=== PATIENT | female | born 1995 ===

== ENCOUNTER → 2019-11-08 | Outpatient (CLI) | payer OTHER | LOC: LAB SHORT 18:00 → LAB 18:00 | DX: Z34.92 Encounter for supervision of normal pregnancy, unspecified, second trimester (principal) | CPT/HCPCS: 87086 ==

== ENCOUNTER 2020-03-04 20:01 | Inpatient (IN) | payer OTHER ==
[~2020-03-04] VITALS: Ht 162.6 cm; Wt 75.9 kg
[2020-03-04] MEDS ORDERED: PRENATE ENHANC1 EACH PO (20:44)
[2020-03-04 20:52] LABS: BASOPHILS ABSOLUTE AUTO 0.03 K/mm3 (0.00-0.23); BASOPHILS PERCENT AUTO 0 % (0-2); EOSINOPHILS ABSOLUTE AUTO 0.03 K/mm3 (0.00-0.68); EOSINOPHILS PERCENT AUTO 0 % (0-6); Hematocrit 34.4 % (33.0-51.0); Hemoglobin 11.2 g/dL (11.5-16.0); IMMATURE GRAN ABSOLUTE AUTO 0.03 K/mm3 (0.00-0.10); IMMATURE GRAN PERCENT AUTO 0 % (0-1); LYMPHOCYTES ABSOLUTE AUTO 1.77 K/mm3 (0.84-5.20); LYMPHOCYTES PERCENT AUTO 24 % (21-46); MONOCYTES ABSOLUTE AUTO 0.52 K/mm3 (0.16-1.47); MONOCYTES PERCENT AUTO 7 % (4-13); Mean Corpuscular HGB 28.4 pg (26.0-34.0); Mean Corpuscular HGB Conc 32.6 g/dL (31.5-36.5); Mean Corpuscular Volume 87 fL (80-100); Mean Platelet Volume 11.2 fL (9.1-12.4); NEUTROPHILS ABSOLUTE AUTO 5.08 K/mm3 (1.96-9.15); NEUTROPHILS PERCENT AUTO 68 % (41-73); Platelet Count 203 K/mm3 (150-400); RDW Coefficient Variation 13.3 % (11.7-14.2); RDW Standard Deviation 42.3 fL (35.1-46.3); Red Blood Cell Count 3.94 M/mm3 (3.80-5.20); White Blood Cell Count 7.46 K/mm3 (4.00-11.30)
--- NOTE | 2020-03-06 01:21 | NUR ---
[id number] FROM DAMION GARCIA RN. ASSUMED CARE OF PT FOR LABOR RECOVERY AT THIS TIME
[2020-03-06 06:21] LABS: Hematocrit 31.1 % (33.0-51.0); Hemoglobin 10.1 g/dL (11.5-16.0); Mean Corpuscular HGB 28.6 pg (26.0-34.0); Mean Corpuscular HGB Conc 32.5 g/dL (31.5-36.5); Mean Corpuscular Volume 88 fL (80-100); Mean Platelet Volume 11.7 fL (9.1-12.4); Platelet Count 161 K/mm3 (150-400); RDW Coefficient Variation 13.4 % (11.7-14.2); RDW Standard Deviation 42.5 fL (35.1-46.3); Red Blood Cell Count 3.53 M/mm3 (3.80-5.20); White Blood Cell Count 12.58 K/mm3 (4.00-11.30)
--- NOTE | 2020-03-06 10:07 | NUR ---
IV DCD AT PATIENT REQUEST. PATIENT UNDERSTANDS THAT IF SHE HAS A BLEEDING ISSUE WE WILL PLACE A NEW ONE. PATIENT PREFERS IBUPROFEN INSTEAD OF TORADOL AND PREFERED HER RHOGAM IM VS. IV BECAUSE SHE DOESN'T LIKE THE FEELING OF THINGS GOING THROUGH HER IV
--- NOTE | 2020-03-07 09:40 | NUR ---
dc teaching done, all questions answered, pt and so are ready to go home, obt matching bands then will walk out.
== END 2020-03-07 09:58 | disposition home or self-care (01) | DRG 807 ==
LOC: OBS 20:01 → BC 20:14
PROVIDERS: Advanced Practice Midwife; ADMIT Registered Nurse Community Health
PROC: 3E0P7VZ Introduction of Hormone into Female Reproductive, Via Natural or Artificial Opening (ICD-10-PCS; 2020-03-04)
PROC: 10E0XZZ Delivery of Products of Conception, External Approach (ICD-10-PCS; principal; 2020-03-05)
PROC: 0KQM0ZZ Repair Perineum Muscle, Open Approach (ICD-10-PCS; 2020-03-05)
PROC: 3E033VJ Introduction of Other Hormone into Peripheral Vein, Percutaneous Approach (ICD-10-PCS; 2020-03-05)
PROC: 10907ZC Drainage of Amniotic Fluid, Therapeutic from Products of Conception, Via Natural or Artificial Opening (ICD-10-PCS; 2020-03-05)
PROC: 00HU33Z Insertion of Infusion Device into Spinal Canal, Percutaneous Approach (ICD-10-PCS; 2020-03-05)
PROC: 3E0R3BZ Introduction of Anesthetic Agent into Spinal Canal, Percutaneous Approach (ICD-10-PCS; 2020-03-05)
DX: O48.0 Post-term pregnancy (principal); Z37.0 Single live birth; Z3A.40 40 weeks gestation of pregnancy; O70.0 First degree perineal laceration during delivery; O71.82 Other specified trauma to perineum and vulva
CPT/HCPCS: 36415; 51702; 85025; 85027; 85460; 86850; 86900; 86901; 96372; J1885; J2001; J2590; J2791; J3010; J7120

== ENCOUNTER → 2021-06-03 | Outpatient (CLI) | payer OTHER ==
[~2021-06-03] MED LIST: PRENATE ENHANC1 EACH PO
== END ==
LOC: LAB SHORT 18:32
PROVIDERS: Registered Nurse Community Health
DX: Z12.4 Encounter for screening for malignant neoplasm of cervix (principal)

== ENCOUNTER → 2021-08-07 | Outpatient (CLI) | payer OTHER ==
[2021-08-09 01:07] LABS: CHLAMYDIA TRACHOMATIS, NAA Negative (Negative)
== END ==
LOC: LAB 14:30 → LAB SHORT 14:30
PROVIDERS: Registered Nurse Community Health
DX: Z34.92 Encounter for supervision of normal pregnancy, unspecified, second trimester (principal)
CPT/HCPCS: 87491; 87591

== ENCOUNTER → 2021-10-10 | Outpatient (CLI) | payer OTHER ==
[2021-10-10 16:59] LABS: Hematocrit 34.7 % (33.0-51.0); Hemoglobin 11.3 g/dL (11.5-16.0)
== END ==
LOC: LAB SHORT 14:49
PROVIDERS: Registered Nurse Community Health
DX: Z34.92 Encounter for supervision of normal pregnancy, unspecified, second trimester (principal)
CPT/HCPCS: 36415; 82950; 85014; 85018

== ENCOUNTER → 2021-12-02 | Outpatient (CLI) | payer OTHER | LOC: LAB SHORT 13:57 | DX: Z34.93 Encounter for supervision of normal pregnancy, unspecified, third trimester (principal) | CPT/HCPCS: 87081; 87150 ==

== ENCOUNTER 2021-12-25 04:02 | Inpatient (IN) | payer OTHER ==
[~2021-12-25] VITALS: Ht 160 cm; Wt 89.1 kg
[2021-12-25 05:36] LABS: BASOPHILS ABSOLUTE AUTO 0.03 K/mm3 (0.00-0.23); BASOPHILS PERCENT AUTO 0 % (0-2); EOSINOPHILS ABSOLUTE AUTO 0.06 K/mm3 (0.00-0.68); EOSINOPHILS PERCENT AUTO 1 % (0-6); Hematocrit 29.8 % (33.0-51.0); Hemoglobin 9.5 g/dL (11.5-16.0); IMMATURE GRAN ABSOLUTE AUTO 0.05 K/mm3 (0.00-0.10); IMMATURE GRAN PERCENT AUTO 1 % (0-1); LYMPHOCYTES ABSOLUTE AUTO 2.17 K/mm3 (0.84-5.20); LYMPHOCYTES PERCENT AUTO 27 % (21-46); MONOCYTES ABSOLUTE AUTO 0.58 K/mm3 (0.16-1.47); MONOCYTES PERCENT AUTO 7 % (4-13); Mean Corpuscular HGB 26.2 pg (26.0-34.0); Mean Corpuscular HGB Conc 31.9 g/dL (31.5-36.5); Mean Corpuscular Volume 82 fL (80-100); Mean Platelet Volume 12.1 fL (9.1-12.4); NEUTROPHILS ABSOLUTE AUTO 5.03 K/mm3 (1.96-9.15); NEUTROPHILS PERCENT AUTO 64 % (41-73); NRBC ABSOLUTE 0.02 K/mm3 (0.00-0.02); NRBC Auto 0.3 /100 WBC (0.0-0.2); Platelet Count 197 K/mm3 (150-400); RDW Coefficient Variation 16.1 % (11.7-14.2); RDW Standard Deviation 47.8 fL (35.1-46.3); Red Blood Cell Count 3.62 M/mm3 (3.80-5.20); White Blood Cell Count 7.92 K/mm3 (4.00-11.30)
[2021-12-26 06:06] LABS: Hematocrit 30.1 % (33.0-51.0); Hemoglobin 9.6 g/dL (11.5-16.0); Mean Corpuscular HGB Conc 31.9 g/dL (31.5-36.5); Mean Corpuscular Volume 82 fL (80-100); Mean Platelet Volume 12.7 fL (9.1-12.4); Platelet Count 182 K/mm3 (150-400); RDW Coefficient Variation 16.1 % (11.7-14.2); RDW Standard Deviation 47.8 fL (35.1-46.3); Red Blood Cell Count 3.69 M/mm3 (3.80-5.20); White Blood Cell Count 10.87 K/mm3 (4.00-11.30)
[2021-12-26] MEDS ORDERED: IBUP800 (08:25)
--- NOTE | 2021-12-26 18:49 | NUR ---
DISCHARGE DISCHARGE HOME STABLE.CARING FOR SELF AND BABY INDEPENDANTLY. VERBALIZES UNDERSTANDING OF FOLLOW UP APPOINTMENTS AND DC INSTRUCTIONS. NO QUESTIONS OR CONCERNS. BF WELL. VSS.LOCHIA SCANT.
== END 2021-12-26 18:42 | disposition home or self-care (01) | DRG 807 ==
LOC: OBS 04:02 → BC 04:07 → OBS 04:11 → BC 04:14
PROVIDERS: ADMIT Registered Nurse Community Health
PROC: 10E0XZZ Delivery of Products of Conception, External Approach (ICD-10-PCS; principal; 2021-12-25)
PROC: 10907ZC Drainage of Amniotic Fluid, Therapeutic from Products of Conception, Via Natural or Artificial Opening (ICD-10-PCS; 2021-12-25)
PROC: 3E0R3BZ Introduction of Anesthetic Agent into Spinal Canal, Percutaneous Approach (ICD-10-PCS; 2021-12-25)
PROC: 3E0234Z Introduction of Serum, Toxoid and Vaccine into Muscle, Percutaneous Approach (ICD-10-PCS; 2021-12-26)
DX: O99.824 Streptococcus B carrier state complicating childbirth (principal); Z37.0 Single live birth; Z3A.39 39 weeks gestation of pregnancy; Z86.16 Personal history of COVID-19; Z67.21 Type B blood, Rh negative; Z79.899 Other long term (current) drug therapy
CPT/HCPCS: 36415; 51702; 85025; 85027; 85460; 86850; 86900; 86901; 96372; A9270; J0290; J1885; J2001; J2590; J2791; J3010; J7120

== ENCOUNTER → 2022-09-22 | Outpatient (CLI) | payer OTHER ==
[~2022-09-22] MED LIST changes: +IBUP800
== END | disposition home or self-care (01) ==
LOC: LAB SHORT 16:05
DX: N91.2 Amenorrhea, unspecified (principal)
CPT/HCPCS: 84702

== ENCOUNTER → 2022-09-29 | Outpatient (CLI) | payer OTHER ==
[2022-09-29 13:26] LABS: Source, Urine Clean Catch
[2022-09-29 14:55] LABS: BASOPHILS ABSOLUTE AUTO 0.02 K/mm3 (0.00-0.23); BASOPHILS PERCENT AUTO 0 % (0-2); EOSINOPHILS ABSOLUTE AUTO 0.04 K/mm3 (0.00-0.68); EOSINOPHILS PERCENT AUTO 1 % (0-6); Hematocrit 38.6 % (33.0-51.0); Hemoglobin 12.5 g/dL (11.5-16.0); IMMATURE GRAN ABSOLUTE AUTO 0.01 K/mm3 (0.00-0.10); IMMATURE GRAN PERCENT AUTO 0 % (0-1); LYMPHOCYTES ABSOLUTE AUTO 1.11 K/mm3 (0.84-5.20); LYMPHOCYTES PERCENT AUTO 23 % (21-46); MONOCYTES ABSOLUTE AUTO 0.28 K/mm3 (0.16-1.47); MONOCYTES PERCENT AUTO 6 % (4-13); Mean Corpuscular HGB Conc 32.4 g/dL (31.5-36.5); Mean Corpuscular Volume 86 fL (80-100); Mean Platelet Volume 11.2 fL (9.1-12.4); NEUTROPHILS ABSOLUTE AUTO 3.32 K/mm3 (1.96-9.15); NEUTROPHILS PERCENT AUTO 70 % (41-73); Platelet Count 250 K/mm3 (150-400); RDW Coefficient Variation 15.7 % (11.7-14.2); RDW Standard Deviation 49.6 fL (35.1-46.3); Red Blood Cell Count 4.47 M/mm3 (3.80-5.20); White Blood Cell Count 4.78 K/mm3 (4.00-11.30)
[2022-09-29 14:57] LABS: Appearance, Urine Clear (Clear); Bilirubin, Urine Neg (Neg); Blood, Urine Neg (Neg); Color, Urine Yellow (P-Yellow); Glucose Qualitative, Urine Neg (Neg); Ketones, Urine Neg (Neg); Leukocyte Esterase, Urine Neg (Neg); Nitrite, Urine Neg (Neg); Protein, Urine Neg (Neg); Specific Gravity, Urine 1.015 (1.003-1.022); Urobilinogen, Urine NORM (Normal)
[2022-09-30 07:11] LABS: HBSAG SCREEN Negative (Negative); HIV AB/P24 AG SCREEN Non Reactive (Non Reactive)
== END | disposition home or self-care (01) ==
LOC: LAB SHORT 13:23 → LAB 13:23
PROVIDERS: Registered Nurse Community Health
DX: Z34.93 Encounter for supervision of normal pregnancy, unspecified, third trimester (principal); N91.2 Amenorrhea, unspecified
CPT/HCPCS: 80055; 81003; 84443; 87086; 87389

== ENCOUNTER → 2023-01-06 | Outpatient (CLI) | payer OTHER ==
[2023-01-06 14:35] LABS: Hematocrit 31.6 % (33.0-51.0); Hemoglobin 10.1 g/dL (11.5-16.0)
== END | disposition home or self-care (01) ==
LOC: LAB SHORT 13:35 → LAB 13:35
PROVIDERS: Registered Nurse Community Health
DX: Z34.82 Encounter for supervision of other normal pregnancy, second trimester (principal)
CPT/HCPCS: 82950; 85014; 85018